=== PATIENT | male | born 1970 | race African-American/Black ===

== ENCOUNTER 2018-07-05 11:09 | Outpatient (CLI) | payer OTHER | END 2018-07-05 11:11 | LOC: LAB 11:09 | PROVIDERS: ATTEND Family Medicine | DX: D68.2 Hereditary deficiency of other clotting factors (principal); I82.533 Chronic embolism and thrombosis of popliteal vein, bilateral | CPT/HCPCS: 36415; 85610 ==

== ENCOUNTER 2018-08-09 13:53 | Emergency (ER) | payer OTHER ==
--- NOTE | 2018-08-09 14:17 | ED Physician Documentation ---
Chest Pain - HISTORIAN Historian: patient - HPI Chief Complaint: Chest Pain Additional Information: Patient is a 47-year-old male that presents to the ER with chest pain- (EMS walked by and stated they transport patient to [place] just about every other d ay- transported to [facility]. yesterday)- EMS state that patient demonstrates drug seeking behavior- patient and I had an episode when he first moved here when he was not truthful about filling narcotics- he even left our ER and went to the [place] where he received another narcotic script. Patient brought up incident stating that I was wrong- I explained "we are not going to discuss past situation- I am going to treat you for your sx's today. He did not mention Univ[facility] visit yesterday until I brought it up. He states [facility] visit was negative. (PLEASE SEE DOCUMENTATION FROM 06/08/18 FOR BEHAVIOR). Onset: minutes Timing: gradual onset Duration: waxing, waning Last known Well Date: 08/08/18 Last Known Well Time: 09:00 Context: rest Severity: mild Quality: tightness Chest Pain Radiation: arms (LEFT ARM) Chest Pain Signs/Symptoms: denies: nausea, vomiting Worsened By: deep breaths (REPRODUCIBLE), change in position Relieved By: rest - ROS CONST: none (did not state that he was seen at [facility]. yesterday for CP) MS/LYMPH: none GI/: none EYES/ENT: none SKIN/ENDO: none NEURO/PSYCH: none - PAST HX [place] risk factors: hypertension DVT/PE Risk Factors: other (sarcoidosis, pancreatitis) Immunizations: UTD Allergies/Adverse Reactions: Allergies Allergy/AdvReac Type Severity Reaction Status Date / Time acetaminophen Allergy Verified 06/08/18 12:59 [From Darvocet-N] aspirin Allergy Verified 06/08/18 12:06 ibuprofen Allergy Verified 06/08/18 12:06 Iodinated Contrast- Oral and Allergy Verified 06/08/18 12:59 IV Dye ketorolac [From Toradol] Allergy Verified 06/08/18 12:06 morphine Allergy Verified 06/08/18 12:06 naproxen Allergy Verified 06/08/18 12:59 nitroglycerin Allergy Verified 06/08/18 12:06 NSAIDS (Non-Steroidal Allergy Verified 06/08/18 12:06 Anti-Inflamma ondansetron [From Zofran] Allergy Verified 06/08/18 12:06 prednisone Allergy Verified 06/08/18 12:06 prochlorperazine Allergy Verified 06/08/18 12:59 [From Compazine] propoxyphene Allergy Verified 06/08/18 12:59 [From Darvocet-N] tramadol [From Ultram] Allergy Verified 06/08/18 12:59 Home Medications: Ambulatory Orders Medication Instructions Recorded Promethazine HCl [Phenergan] 12.5 mg PO Q6 PRN u2 06/27/18 - SOCIAL HX Smoking History: greater than 1 pack/day Alcohol Use: rarely Drug Use: none (denies) - FAMILY HX Family HX: none - VITAL SIGNS Vital Signs: Vital Signs Temp Pulse Resp BP Pulse Ox 120/70 06/08/18 14:31 - REVIEWED ASSESSMENTS Nursing Assessment Reviewed: Yes Vitals Reviewed: Yes Progress - Progress Progress: 17:36 Received a call from Opal at [facility]- patient is there- he told them he has not been seen anywhere- c/o n/v- denied taking any meds- she was able to go on to the medication website and they are concerned about the number of scripts he has filled-many many oxycodone. She will be discussing with patient. I will contact patients PCP. Medication profile given to PCP ED Results Lab/Radiology - Orders Orders: ED Orders Category Date Time Status Continuous EKG monitoring Q30M Care 08/09/18 14:12 Ordered Continuous Pulse Oximetry Q30M Care 08/09/[address] IV Lock 1T Care 08/09/18 14:12 Ordered CBC/PLATELET/DIFF Routine Lab 08/09/18 14:12 Ordered CMP Routine Lab 08/09/18 14:12 Ordered CREATINE KINASE Routine Lab 08/09/18 14:12 Ordered TROPONIN I Stat Lab 08/09/18 14:12 Ordered EKG WITH COMPARISON Stat Ther 08/09/18 14:12 Ordered Chest Pain Physical Exam - EXAM General Appearance: no acute distress EENT: eye inspection normal, ENT inspection normal, V[place] Neck: nml inspection, no carotid bruit Respiratory: no resp. distress, chest non-tender, nml breath sounds CVS: reg. rate & rhythm, no murmur Abdomen: soft, normal bowel sounds Skin: warm/dry, normal color Extremities: non-tender, normal range of motion Neuro: oriented X3, CN's nml as tested, motor nml, sensation nml, mood/affect nml, cognition normal Discharge Clincal Impression: Drug-seeking behavior, Narcotic abuse Referrals: Primary Doctor,Marlen [Primary Care Provider] - 2 Days Additional Instructions: Keep appointment with PCP in the morning Lovenox 60 mg given in ER Continue with current treatment Condition: Good Disposition: 01 HOME, SELF-CARE Decision to Admit: NO Decision Time: 15:15
[2018-08-09 14:24] LABS: BASOPHILS % 0.4 % (0.0-1.5); NEUTROPHILS # 2.3 # k/uL (1.4-7.7)
[2018-08-09 14:51] LABS: eGFR (Non-African) > 60
[2018-08-09] MEDS: ENOXAPARIN SODIUM 60 MG/0.6 ML DISP.SYRIN SQ ONE (15:10)
[2018-08-09 15:29] VITALS: BP 117/74
== END 2018-08-09 15:13 | disposition home or self-care (01) ==
LOC: ED 13:53
DX: F11.10 Opioid abuse, uncomplicated (principal); Z76.5 Malingerer [conscious simulation]
CPT/HCPCS: 80053; 82550; 84484; 85025; 96372; 99283; 99284; J1650; S1016

== ENCOUNTER 2018-10-21 11:38 | Outpatient (CLI) | payer OTHER ==
[2018-10-21 11:59] LABS: BASOPHILS % 0.4 % (0.0-1.5); NEUTROPHILS # 1.6 # k/uL (1.4-7.7)
[2018-10-21 13:50] LABS: eGFR (Non-African) > 60
[2018-10-24 08:34] LABS: A1C 5.6 % (<5.7)
--- NOTE | 2018-10-27 09:37 | Diagnostic Imaging Report ---
AGUILAR FERREIRA [facility] [id number] [address] [facility] [address] [place], [place]. [address] Report Submission Date: Oct 21, 2018 12:31:38 PM CDT Patient Study Name: ERIC FIELDS Date: Oct 21, 2018 11:44:03 AM CDT Modality Type: DX Gender: M Description: CHEST 2VIEW : 66 Institution: [facility] Physician: AGUILAR FERREIRA Examination: PA and lateral chest. History: Evaluate lung ho. Comparison exam: None provided. Findings: PA and lateral views of the chest demonstrates a normal cardiac and mediastinal silhouette. No focal infiltrate. No blunting of the costophrenic margins. Osseous structures are appropriate for age. Impression: No acute pulmonary process. Electronically signed on Oct 21, 2018 12:31:38 PM CDT by: Carmelo ADKINS
== END 2018-10-21 11:40 ==
LOC: LAB 11:38
PROVIDERS: ATTEND Family Medicine
DX: E10.51 Type 1 diabetes mellitus with diabetic peripheral angiopathy without gangrene (principal); R63.4 Abnormal weight loss; J43.1 Panlobular emphysema; F17.200 Nicotine dependence, unspecified, uncomplicated; Z79.899 Other long term (current) drug therapy
CPT/HCPCS: 36415; 71046; 80053; 83036; 84443; 85025